=== PATIENT | male | born 1980 | race Caucasian/White ===

== ENCOUNTER 2019-09-10 20:13 | Emergency (ER) | payer OTHER ==
[~2019-09-10] VITALS: Ht 172.7 cm; Wt 72.6 kg
[2019-09-10] MEDS ORDERED: LORazepam 0.5 MG TAB PO ONE (21:45)
[2019-09-10 22:08] LABS: Basophils # (auto) 0.1 10 ^3/uL (0-0.2); Basophils % (auto) 0.9 % (0.0-2.0); Eosinophils # (auto) 0.4 10 ^3/uL (0-0.8); Eosinophils % (auto) 3.8 % (0.0-7.0); Hematocrit 47.3 % (41.0-53.0); Hemoglobin 15.5 g/dL (13.5-17.5); Lymphocytes # (auto) 2.8 10 ^3/uL (0.4-5.4); Lymphocytes % (auto) 28.9 % (10.0-50.0); Mean Corpuscular Hemoglobin 28.4 pg (28.0-32.0); Mean Corpuscular Hgb Conc. 32.7 g/dL (32.0-36.0); Mean Corpuscular Volume 86.7 fL (80.0-100.0); Monocytes # (auto) 0.9 10 ^3/uL (0-1.3); Monocytes % (auto) 8.9 % (0.0-12.0); Neutrophils # (auto) 5.5 10 ^3/uL (1.6-8.6); Neutrophils % (auto) 57.5 % (37.0-80.0); Nucleated Red Blood Cells % 0.1 %; Platelet Count (auto) 373 10^3/uL (140-450); Red Blood Cells 5.46 10^6/uL (4.5-5.90); Red Cell Distribution Width 14.6 % (11.8-14.3); White Blood Cell 9.6 10^3/uL (4.4-10.8)
[2019-09-10 22:24] LABS: Albumin 4.1 g/dL (3.4-5.0); Anion Gap 6 (5-15); Blood Alcohol < 3.0 mg/dL (0-5); Blood Urea Nitrogen 19 mg/dL (7-18); Calcium 9.6 mg/dL (8.5-10.1); Carbon Dioxide 28 mmol/L (21-32); Chloride 108 mmol/L (98-107); Glucose 59 mg/dL (74-106); Potassium 3.4 mmol/L (3.5-5.1); Sodium 142 mmol/L (136-145)
[2019-09-10 22:27] LABS: Alanine Aminotransferase 20 U/L (16-61); Alkaline Phosphatase 86 U/L (45-117); Aspartate Aminotransferase 14 U/L (15-37); BUN/Creatinine Ratio 16.8; Bilirubin, Total 0.7 mg/dL (0.2-1.0); GFR African American 93 mL/min; GFR Non-African American 77 mL/min; Total Protein 7.8 g/dL (6.4-8.2)
[2019-09-11 03:23] LABS: Amphetamine Screen, Urine POSITIVE (NEGATIVE); Barbiturate Scree,Urine NEGATIVE (NEGATIVE); Benzodiazephine Screen, Urine NEGATIVE (NEGATIVE); Cannabinoid Screen, Urine POSITIVE (NEGATIVE); Cocaine Screen, Urine NEGATIVE (NEGATIVE); Opiate Scree,Urine NEGATIVE (NEGATIVE); Phencyclidine Screen, Urine POSITIVE (NEGATIVE)
[2019-09-11 03:37] LABS: Urine Bacteria FEW /hpf (None Seen); Urine Blood Negative /uL (Negative); Urine Mucus MANY (None Seen); Urine Specific Gravity 1.037 (1.001-1.035); Urine WBC 19 /hpf (0 - 3)
[2019-09-11] MEDS: QUEtiapine FUMARATE 25 MG TAB PO SCH (22:00)
[2019-09-11] MEDS ORDERED: QUEtiapine FUMARATE 25 MG TAB ONE (23:25)
[2019-09-12] MEDS ORDERED: LORazepam 2MG/ML-1ML VIAL IM PRN (01:00)
[2019-09-12] MEDS ORDERED: HALOPERIDOL LACTATE 5 MG/ML INJ VIAL IM PRN (01:00)
[2019-09-12] MEDS: QUEtiapine FUMARATE 25 MG TAB PO SCH ×4 (07:18→23:32)
[2019-09-12] MEDS ORDERED: NITROFURANTOIN 100 mg CAP PO ONE (22:00)
[2019-09-13] MEDS: QUEtiapine FUMARATE 25 MG TAB PO SCH ×3 (06:00→19:35)
[2019-09-13 19:15] VITALS: BP 113/66
== END 2019-09-13 17:48 | disposition short-term general hospital (02) ==
LOC: ER 20:13
DX: R45.851 Suicidal ideations (principal); F32.9 Major depressive disorder, single episode, unspecified; F19.10 Other psychoactive substance abuse, uncomplicated; R44.3 Hallucinations, unspecified; Z20.828 Contact with and (suspected) exposure to other viral communicable diseases
CPT/HCPCS: 36415; 80053; 80307; 80320; 81001; 85025; 99285; C9803; U0003